=== PATIENT | female | born 1965 | race Caucasian/White ===

== ENCOUNTER 2017-09-23 05:53 | Day surgery (SDC) | payer BC ==
[~2017-09-23 05:53] MED LIST: Buffered Lidocaine 0.9% SYRIN* 5 ML/SYR SYRINGE INTRADERM ONE
[2017-09-23] MEDS ORDERED: Sodium Citrate/Citric Acid* 15 ML UDC PO ONE (06:00)
[2017-09-23] MEDS ORDERED: Sodium Citrate/Citric Acid* 15 ML UDC ONE (06:03)
[2017-09-23] MEDS ORDERED: ceFAZolin 1 GM in Dextrose (*) 0 GM/0 ML BAG IVPB ONE (06:03)
[2017-09-23] MEDS ORDERED: ceFAZolin 2 GM PREMIX (*) 2 GM/50 ML BAG IVPB ONE (06:34)
[2017-09-23] MEDS ORDERED: Lidocaine 1% INJ* 10 MG/ML 30 ML SDV ONE (07:16)
[2017-09-23] MEDS ORDERED: Midazolam* 1 MG/ML 2 ML VIAL (2 MG) ONE ×2 (07:23→07:39)
[2017-09-23] MEDS ORDERED: fentaNYL* 50 MCG/ML 2 ML VIAL (100 MCG VIAL) ONE (07:23)
[2017-09-23] MEDS ORDERED: Lidocaine 2% PF * 5 ML VIAL ONE (08:00)
[2017-09-23] MEDS ORDERED: Propofol* 10 MG/ML 20 ML BTL IV PUSH ONE (08:00)
[2017-09-23] MEDS ORDERED: Naloxone* 0.4 MG/ML 1 ML VIAL IV PRN (08:09)
[2017-09-23] MEDS ORDERED: oxyCODONE/Acetamin 5/325 MG* TAB ONE (09:02)
--- NOTE | 2017-09-23 09:08 | RAD ---
INDICATION: Central venous catheter placement. COMPARISON: Correlation is made with prior chest x-ray study from June 19, 2011. TECHNIQUE: A portable view of the chest was obtained. FINDINGS: There is a power port central venous catheter present entering on the left side. The catheter tip projects over the right atrium. The heart is within normal limits in size. The lungs are underinflated. There is minimal atelectasis at both lung bases. The lungs are otherwise clear. No pleural effusion or pneumothorax is seen. IMPRESSION: STATUS POST CENTRAL VENOUS CATHETER PLACEMENT, NO EVIDENCE FOR ACUTE FINDING.
[2017-09-23 09:09] VITALS: BP 132/84
--- NOTE | 2017-09-23 09:11 | RAD ---
CPT II Codes: G9500 INDICATION: Breast cancer TECHNIQUE: Intraoperative fluoroscopy was provided during power port placement. FINDINGS: 2 spot films depict left subclavian PowerPort placement with the tip terminating at the right atrium.. Fluoroscopy time: 10.6 seconds IMPRESSION: As above.
--- NOTE | 2017-09-24 14:14 | OP ---
CC: Dr. Sumit Mello; Dr. Beltran; Dr. Joy Brush OPERATIVE NOTE: DATE OF OPERATION: 09/23/17 DATE OF : 65 SURGEON: Sumit Mello MD HOSPICE/HOME HEALTH AIDE: None. ANESTHESIOLOGIST: Dr. Puente. ANESTHESIA: LMAC. PRE-OP DIAGNOSIS: Carcinoma of the breast. POST-OP DIAGNOSIS: Carcinoma of the breast. OPERATIVE PROCEDURE: Placement of left subclavian PowerPort. DESCRIPTION OF PROCEDURE: The patient was supine on the operating room table. After adequate intrave nous sedation, compression stockings, Sofya Hugger warmer, and intravenous antibiotics, the left chest and neck region were prepped with antiseptic and draped in a sterile fashion. Local infiltrative an esthesia was administered. Subclavian incision was created and inferior pocket was created and with a little bit of difficulty, subclavian venipuncture was carried out and guidewire passed under fluoro scopic guidance into the superior vena cava. The catheter was passed with a Peel-Away introducer and measured and cut at 27 cm, attached through the port, which was sutured into the pocket with 2-0 Pro qasim. The pocket was closed with 3-0 and 5-0 Vicryl and followed by Steri-Strips. The port was acce ssed. There was good blood return. It was flushed with saline solution and then heparinized solutio n and covered with a Tegaderm dressing. She was awakened and brought to the recovery in good conditi on. No complications. No drains. No pathologic specimens. Sponge and instrument counts correct. Estimated blood loss 10 mL. [id number]/[facility] #: [id number]
== END 2017-09-23 09:20 | disposition home or self-care (01) ==
LOC: OR 05:53
PROVIDERS: ATTEND Surgery
DX: C50.911 Malignant neoplasm of unspecified site of right female breast (principal); E78.5 Hyperlipidemia, unspecified; Z87.891 Personal history of nicotine dependence; R00.2 Palpitations
CPT/HCPCS: 71045; 76000; A9270-GY; C1788; J0690; J1642; J2250; J2704; J3010

== ENCOUNTER 2017-09-25 07:42 | Emergency (ER) | payer BC ==
[2017-09-25 07:48] VITALS: BP 130/70
[2017-09-25] MEDS ORDERED: Ondansetron INJ* 2 MG/ML VIAL IV ONE (08:01)
[2017-09-25] MEDS ORDERED: Famotidine TAB* 20 MG PO ONE (08:01)
[2017-09-25] MEDS ORDERED: NS 0.9% 1000 ML* 1,000 ML IV ONE (08:01)
[2017-09-25] MEDS ORDERED: Lidocaine 2% VISCOUS* 15 ML UDC PO ONE (08:01)
[2017-09-25] MEDS ORDERED: Al Hydrox/Mg Hydrox/Simet LIQ* 30 ML UDC PO ONE (08:01)
[2017-09-25 08:23] LABS: Hematocrit 41 % (35-47); Hemoglobin 13.7 g/dl (12.0-16.0); Mean Corpuscular HGB Conc 33 g/dl (31-36); Mean Corpuscular Hemoglobin 29 pg (27-31); Mean Corpuscular Volume 87 fL (80-97); Mean Platelet Volume 9.4 um3 (7.4-10.4); Platelet Count 222 10^3/ul (150-450); Red Cell Distribution Width 13 % (10.5-15); White Blood Count 34.3 10^3/ul (3.5-10.8)
[2017-09-25 08:39] LABS: ABS Basophils 0.1 10^3/ul (0-0.2); ABS Eosinophils 0 10^3/ul (0-0.6); ABS Lymphocytes 0.9 10^3/ul (1.0-4.8); ABS Monocytes 0.7 10^3/ul (0-0.8); ABS Neutrophils 32.6 10^3/ul (1.5-7.7); ABS Nucleated RBC 0 10^3/ul; Eosinophil % 0.1 % (0-6); Lymphocyte % 2.6 % (25-47); Nucleated Red Blood Cells % 0
[2017-09-25 08:42] LABS: EGFR Non-African American 89.3 (>60)
[2017-09-25] MEDS ORDERED: Pantoprazole IV* 40 MG IV ONE (08:53)
[2017-09-25] MEDS ORDERED: Morphine INJ** 4 MG/ML 1 ML CARPUJECT IV ONE (08:54)
[2017-09-25] MEDS ORDERED: Morphine INJ* 2 MG/ML 1 ML SYRINGE (TWO MG - NEW SYRINGE VERSION) ONE (08:57)
[2017-09-25] MEDS ORDERED: LORazepam INJ* 2 MG/ML 1 ML VIAL IV PUSH ONE (08:58)
[2017-09-25] MEDS ORDERED: Morphine INJ* 2 MG/ML 1 ML SYRINGE (TWO MG - NEW SYRINGE VERSION) IV ONE (09:01)
--- NOTE | 2017-09-25 09:07 | ED ---
Abdominal Pain/Female - HPI Summary HPI Summary: This is xenianila Reyna Livingston documenting for attending Stevenson Vega MD. This patient is a 52 year old F presenting to [facility] with a chief complaint of sharp upper abdominal pain since yesterday, worsening at midnight. The patient rates the pain 8/10 in severity. Patient reports sore throat, pain in upper L arm, swelling around neck and shoulders, diarrhea, and nausea. Patient denies dyspnea. She cannot tell if she feels heartburn or reflux due to existing upper abdominal pain. Patient got a Port-A-Cath done 2 days and started her first round of chemotherapy. Patient denies pain from Port-A-Cath. Her oncologist is Joy Brush MD. She had surgery a month ago to remove a lump on her R breast, and the surgeon was Sumit Mello MD. She took 2 anti-nausea medications that did not alleviate her symptoms. She is also on chemotherapy agents, steroids, and Benadryl. She takes Tylenol or ibuprofen as needed. - History of Current Complaint Chief Complaint: EDAbdPain Stated Complaint: ABD PAIN,SWELLING Time Seen by Provider: 09/25/17 07:53 Hx Obtained From: Patient Hx Last Menstrual Period: 2012 Onset/Duration: Sudden Onset, Lasting Days - since yesterday, Still Present Timing: Constant Severity Initially: Severe Severity Currently: Severe Pain Intensity: 8 Pain Scale Used: 0-10 Numeric Location: Other - upper abdominal Character: Sharp Associated Signs and Symptoms: Positive: Nausea, Diarrhea, Other: - swelling around neck and shoudlers, sore throat, pain in upper L arm, Allergies/Adverse Reactions: Allergies Allergy/AdvReac Type Severity Reaction Status Date / Time Statins Allergy Muscle Ache Uncoded 09/23/17 06:15 PMH/Surg Hx/FS Hx/Imm Hx Endocrine/Hematology History: Reports: Hx Anemia - Excessive menstruation Denies: Hx Bone Marrow Disease, Hx Sickle Cell Disease Cardiovascular History: Reports: Hx Hypercholesterolemia Denies: Other Cardiovascular Problems/Disorders Respiratory History: Denies: Other Respiratory Problems/Disorders GI History: Reports: Hx Gastroesophageal Reflux Disease - occasional-usually just heartburn, Other GI Disorders - Fatty Liver History: Reports: Hx Kidney Stones - believes there were kidney stones found on the CT scan Denies: Other Problems/Disorders Musculoskeletal History: Reports: Hx Arthritis - bilateral hips, back, knees, Hx Tendonitis - Left elbow tendinitis Denies: Other Musculoskeletal History - Torn muscle in back 1995 Sensory History: Reports: Hx Contacts or Glasses - Reading glasses Denies: Hx Hearing Aid Opthamlomology History: Reports: Hx Contacts or Glasses - Reading glasses Neurological History: Denies: Other Neuro Impairments/Disorders Psychiatric History: Reports: Hx Depression - history of, situational, job loss 2012 - Cancer History Hx Chemotherapy: - Starting on 09/23/17 - Surgical History Surgery Procedure, Year, and Place: Hysterectomy 2013, Tonsils, Appendectomy , B /L eye muscle x 2 surgeries; Deviated septum, , Retained placenta, Tummy tuck. Lumpectomy with [place] node biopsy 08/09. Colonoscopy 2016 & 2017 Hx Anesthesia Reactions: Yes - States she had anxiety and sleep apnea after lumpectomy in PACU Infectious Disease History: No Infectious Disease History: Denies: Traveled Outside the [place] in Last 30 Days - Family History Known Family History: Positive: Cardiac Disease - Mother Negative: Hypertension, Diabetes - Social History Lives: With Family Alcohol Use: Occasionally Alcohol Amount: less than once a month Substance Use Type: Reports: None Smoking Status (MU): Former Smoker Amount Used/How Often: 1/2 - 1 PPD for 10 years Review of Systems Positive: Sore Throat, Other - swelling around neck and shoulders Negative: Other - denies dyspnea Positive: Abdominal Pain - sharp upper abdominal pain, Diarrhea, Nausea Positive: Other - pain in upper L arm All Other Systems Reviewed And Are Negative: Yes Physical Exam - Summary Physical Exam Summary: Appearance: Well appearing, no pain distress Skin: warm, dry, reflects adequate perfusion. Healing surgical site in left chest port and a little bit of swelling. Similar swelling on right side Head/face: normal Eyes: EOMI, TRACY ENT: Normal. Mucous membranes moist. Neck: supple, non-tender. No stridor in neck Respiratory: Breath sounds present. Mild wheezes in right base. Cardiovascular: RRR, pulses symmetrical Abdomen: non-tender, soft Bowel Sounds: present Musculoskeletal: normal, strength/ROM intact Neuro: normal, sensory motor intact, A&Ox3 Triage Information Reviewed: Yes Vital Signs On Initial Exam: Initial Vitals Temp Pulse Resp BP Pulse Ox 97.4 F 62 14 130/70 97 09/25/17 07:45 09/25/17 07:45 09/25/17 07:45 09/25/17 07:45 09/25/17 07:45 Vital Signs Reviewed: Yes Diagnostics - Vital Signs Vital Signs Temp Pulse Resp BP Pulse Ox 09/25/17 09:01 16 09/25/17 08:18 66 94 09/25/17 07:45 97.4 F 62 14 130/70 97 - Laboratory Lab Results: Lab Results 09/25/17 09/25/17 09/25/17 Range/Units 08:08 08:08 08:08 WBC 34.3 H (3.5-10.8) 10^3/ul RBC 4.70 (4.00-5.40) 10^6/ul Hgb 13.7 (12.0-16.0) g/dl Hct 41 (35-47) % MCV 87 (80-97) fL MCH 29 (27-31) pg MCHC 33 (31-36) g/dl RDW 13 (10.5-15) % Plt Count 222 (150-450) 10^3/ul MPV 9.4 (7.4-10.4) um3 Neut % (Auto) 94.9 H (38-83) % Lymph % (Auto) 2.6 L (25-47) % Wilcox % (Auto) 2.1 (0-7) % Eos % (Auto) 0.1 (0-6) % Baso % (Auto) 0.3 (0-2) % Absolute Neuts (auto) 32.6 H (1.5-7.7) 10^3/ul Absolute Lymphs (auto) 0.9 L (1.0-4.8) 10^3/ul Absolute Monos (auto) 0.7 (0-0.8) 10^3/ul Absolute Eos (auto) 0 (0-0.6) 10^3/ul Absolute Basos (auto) 0.1 (0-0.2) 10^3/ul Absolute Nucleated RBC 0 10^3/ul Nucleated RBC % 0 Sodium 137 (135-145) mmol/L Potassium 3.4 L (3.5-5.0) mmol/L Chloride 105 (101-111) mmol/L Carbon Dioxide 25 (22-32) mmol/L Anion Gap 7 (2-11) mmol/L BUN 22 (6-24) mg/dL Creatinine 0.69 (0.51-0.95) mg/dL Est GFR ( Amer) 108.1 (>60) Est GFR (Non-Af Amer) 89.3 (>60) BUN/Creatinine Ratio 31.9 H (8-20) Glucose 137 H (70-100) mg/dL Lactic Acid 0.9 (0.5-2.0) mmol/L Calcium 8.6 (8.6-10.3) mg/dL Total Bilirubin 0.30 (0.2-1.0) mg/dL AST 19 (13-39) U/L ALT 22 (7-52) U/L Alkaline Phosphatase 64 (34-104) U/L C-Reactive Protein 6.78 (<8.01) mg/L Total Protein 6.6 (6.4-8.9) g/dL Albumin 3.6 (3.2-5.2) g/dL Globulin 3.0 (2-4) g/dL Albumin/Globulin Ratio 1.2 (1-3) Lipase 15 (11.0-82.0) U/L Result Diagrams: 09/25/17 08:08 09/25/17 08:08 Lab Statement: Any lab studies that have been ordered have been reviewed, and results considered in the medical decision making process. - Radiology Chest X-Ray Radiology Interpretation Completed By: Radiologist - NO ACTIVE CARDIOPULMONARY DISEASE IS NOTED. ED Physician has reviewed this report. - Ultrasound No standard instances Ultrasound Interpretation Completed By: Radiologist - Venous Doppler Study shows : No evidence of deep venous thrombosis of the left upper extremity is present. ED Physician has reviewed this report. - EKG 1 Cardiac Rate: Bradycardia - 55 BPM EKG Rhythm: Sinus Rhythm - EKG taken 08:05. Flipped T wave in V2 through V4. She has had a flipped T wave before on 12/27/2015. Re-Evaluation - Re-Evaluation 1 Re-Evaluation Time: 08:53 Change: Improved Comment: Patient is slightly improved, but she still has epigastric discomfort 2 Re-Evaluation Time: 10:36 Change: Improved Abdominal Pain Fem Course/Dx - Course Course Of Treatment: Patient with epigastric discomfort beginning after initiation of chemotherapy and oral steroids. She has been taking Decadron twice a day. She was treated with PPI, H2 saida Carafate and viscous lidocaine with some benefit. She was also treated for pain which significantly improved her symptoms. I discussed the case with oncology field installation technician who is aware and agrees this is likely steroid-induced gastritis. White count likely from same. Abdomen was reexamined and it was soft and nontender. Ultrasound of the tender left upper extremity was found to be negative. This is the site of her newly placed port. There is some swelling in the area of the clavicles bilaterally. No DVT was found. She'll follow closely with the oncologist. - Diagnoses Differential Diagnosis: Positive: Other - Gastritis, pancreatitis, peptic ulcer disease, chemotherapy-induced nausea and vomiting Provider Diagnoses: Acute gastritis, Chemotherapy adverse reaction, History of right breast cancer - Provider Notifications Discussed Care Of Patient With: Charly Hahn - Oncology Time Discussed With Above Provider: 08:57 Instructed by Provider To: Other - Dr. Hahn agreed with everything the ED Physician has done so far. Dr. Hahn advised to try some Ativan and ultrasound her arm Discharge - Sign-Out/Discharge Documenting (check all that apply): Patient Departure - Discharge Plan Condition: Improved Disposition: HOME Prescriptions: Famotidine TAB* [Pepcid 20 MG TAB*] 20 mg PO BID #30 tab Pantoprazole Sodium [Protonix] 40 mg PO DAILY #30 granpkt. Sucralfate TAB* [Carafate*] 1 gm PO ACHS #40 tab Patient Education Materials: Gastritis (ED) Referrals: Jess Beltran MD [Primary Care Provider] - Additional Instructions: Clar[place] diet, drink plenty of fluids. Maalox may help. Return with fever, increased discomfort, new symptoms, worse or other concerns. - Billing Disposition and Condition Condition: IMPROVED Disposition: Home
--- OUTSIDE RECORDS SUMMARY | 2017-09-25 09:29 | XMS REPORT ---
:1965 External Reference #:[id number] Author Organization [facility] Address [address] [place] [address] [place] [address] Phone [phone] Care Team Providers Name Role Phone Jess Beltran MD Primary Care Physician Unavailable Payers Type Date Identification Numbers Payment Provider Subscriber Commercial Expires: Policy Number: BS Fatou Grant 2017 [id number] PayID: [id number] [address] [address] [place] [id number] Medigap Part B Effective: 2017 Policy Number: BS Fatou Grant [id number] PayID: [id number] [address] [address] [place] [address] Problems Description No Information Family History Date Family Member(s) Problem(s) Comments General Breast Cancer aunt General Ovarian Cancer General Colon Cancer Father Colon Cancer Onset: (age 54 Years) Mother Breast Cancer Onset: (age 40 Years) First Sister Ovarian Cancer Social History Type Date Description Comments Marital Status 2 Times Lives With Occupation Unemployed ETOH Use Occasionally consumes alcohol Smoking Patient is a former smoker Recreational Drug Use Denies Drug Use Daily Caffeine Does Not Consume Caffeine Exercise Type/Frequency Does not exercise Allergies, Adverse Reactions, Alerts Date Description Reaction Status Severity Comments 09/17/2017 Statins active Medications Medication Date Status Form Strength Qnty SIG Indications Ordering Provider Cyclobenzaprine / Active Tablets 10mg 1 tab by Unknown HCL 0000 mouth as needed Ibuprofen 00/ Active Tablets 600mg three times Unknown 0000 a day Imodium A-D 00/00/ Active Capsules 2mg take two Unknown 0000 after the first loose stool and one after each loose stool afterwards Ocuvite Adult / Active Capsules 1 by mouth Unknown Formula 0000 every day Ondansetron 00/00/ Active Tablets 4mg dissolve Unknown 0000 Dispers one tablet orally every 8 hours as needed for nausea. Tums 00/00/ Active Chewtabs 500mg as needed Unknown 0000 Vital Signs Date Vital Result Comment 09/17/2017 Height 63.5 inches 5'3.50" Weight 159.00 lb Heart Rate 90 /min BP Systolic Sitting 112 mmHg BP Diastolic Sitting 60 mmHg Respiratory Rate 12 /min Pain Level 4 BMI (Body Mass Index) 27.7 kg/m2 Results Description No Information Procedures Date CPT Code Description Status 09/14/2017 79118 ECHO Transthoracic, Real-Time 2D With Doppler And Color Completed Flow 09/14/2017 85347 ECHO Transthoracic, Real-Time 2D With Doppler And Color Completed Flow 11/06/2011 86597 Holter Monitor Review (24 hr)dr review & interp only Completed 07/17/2011 76223 Holter Monitor Review (24 hr) review & interp only Completed Plan of Care 09/17/2017 - Sumit Mello M.D.C50.911 Malignant neoplasm of unsp site of right female breastFollow up:OR
--- NOTE | 2017-09-25 09:52 | RAD ---
Indication: Left upper extremity pain. Duplex Doppler sonography of the left upper extremity venous system was performed. Internal jugular vein demonstrates biphasic flow bilaterally. Subclavian veins demonstrates normal phasic flow. The left axillary vein, brachial vein, basilic vein, cephalic vein appear patent and compressible. IMPRESSION: No evidence of deep venous thrombosis of the left upper extremity is present.
--- NOTE | 2017-09-25 10:17 | RAD ---
Indication: Epigastric pain. Single frontal view of the chest performed at 0910 hours was reviewed. No prior study is available for comparison. No mediastinal shift is noted. Heart is of normal size and configuration. Lung tian appear clear. Central port is in place. IMPRESSION: NO ACTIVE CARDIOPULMONARY DISEASE IS NOTED.
== END 2017-09-25 11:03 | disposition home or self-care (01) ==
LOC: ED 07:42
DX: K29.00 Acute gastritis without bleeding (principal); T45.1X5A Adverse effect of antineoplastic and immunosuppressive drugs, initial encounter; Y92.9 Unspecified place or not applicable; C50.911 Malignant neoplasm of unspecified site of right female breast; R00.1 Bradycardia, unspecified; F17.200 Nicotine dependence, unspecified, uncomplicated; Z87.442 Personal history of urinary calculi; Z88.8 Allergy status to other drugs, medicaments and biological substances
CPT/HCPCS: 36415; 71045; 80053; 83605; 83690; 85025; 86140; 87040; 93005; 96361; 96374; 96375; 99283; A9270-GY; J2060; J2270; J2405

== ENCOUNTER 2017-09-27 07:42 | Inpatient (IN) | payer BC ==
[2017-09-27] MEDS: Morphine VIAL* 4 MG/ML VIAL (1 ml vial) IV PRN (17:16)
[2017-09-27] MEDS: Al Hydrox/Mg Hydrox/Simet LIQ* 30 ML UDC PO SCH ×2 (17:18→21:41)
[2017-09-27] MEDS: Lidocaine 2% VISCOUS* 15 ML UDC PO SCH ×2 (17:18→21:41)
[2017-09-27] MEDS: Sucralfate TAB* 1 GM PO SCH ×2 (17:18→20:39)
[2017-09-27] MEDS: Enoxaparin(*) 40 MG/0.4 ML SYR SUBCUT SCH (17:18)
[2017-09-27] MEDS: NS 0.9% 1000 ML* 1,000 ML IV SCH (17:56)
[2017-09-27] MEDS: Cyclobenzaprine TAB* 10 MG PO PRN (17:57)
[2017-09-27] MEDS: Ondansetron INJ* 2 MG/ML VIAL IV PRN (17:57)
[2017-09-27] MEDS: Prochlorperazine TAB* 10 MG PO PRN (18:59)
[2017-09-27] MEDS ORDERED: Famotidine IV * 20 MG in NS 0.9% 100 ML* 100 ML IVPB SCH (21:00)
[2017-09-27] MEDS: Ondansetron ODT TAB* 4 MG PO PRN (21:44)
[2017-09-27] MEDS: LORazepam INJ* 2 MG/ML 1 ML VIAL IV PUSH PRN (21:51)
[2017-09-27] MEDS: Famotidine IV* 10 MG/ML 2 ML (20 mg) IV SLOW PU SCH (21:51)
[2017-09-28] MEDS: Ondansetron INJ* 2 MG/ML VIAL IV PRN ×3 (03:00→13:10)
[2017-09-28] MEDS: Prochlorperazine TAB* 10 MG PO PRN ×2 (03:00→09:12)
[2017-09-28 05:07] LABS: ABS Basophils 0 10^3/ul (0-0.2); ABS Eosinophils 0.1 10^3/ul (0-0.6); ABS Lymphocytes 1.2 10^3/ul (1.0-4.8); ABS Monocytes 0.1 10^3/ul (0-0.8); ABS Neutrophils 1.6 10^3/ul (1.5-7.7); ABS Nucleated RBC 0 10^3/ul; Eosinophil % 4.7 % (0-6); Hematocrit 33 % (35-47); Hemoglobin 11.4 g/dl (12.0-16.0); Lymphocyte % 40.4 % (25-47); Mean Corpuscular HGB Conc 34 g/dl (31-36); Mean Corpuscular Hemoglobin 30 pg (27-31); Mean Corpuscular Volume 87 fL (80-97); Mean Platelet Volume 10.1 um3 (7.4-10.4); Nucleated Red Blood Cells % 0; Platelet Count 102 10^3/ul (150-450); Red Blood Count 3.81 10^6/ul (4.00-5.40); Red Cell Distribution Width 13 % (10.5-15); White Blood Count 3.1 10^3/ul (3.5-10.8)
[2017-09-28 05:21] LABS: EGFR Non-African American 81.1 (>60)
[2017-09-28] MEDS: Sucralfate TAB* 1 GM PO SCH ×4 (07:40→22:26)
[2017-09-28] MEDS: Morphine VIAL* 4 MG/ML VIAL (1 ml vial) IV PRN ×2 (09:03→12:09)
[2017-09-28] MEDS: Al Hydrox/Mg Hydrox/Simet LIQ* 30 ML UDC PO SCH ×4 (09:04→21:07)
[2017-09-28] MEDS: Lidocaine 2% VISCOUS* 15 ML UDC PO SCH ×4 (09:04→21:07)
[2017-09-28] MEDS: Pantoprazole IV* 40 MG IV SCH (09:04)
[2017-09-28] MEDS: Famotidine IV* 10 MG/ML 2 ML (20 mg) IV SLOW PU SCH ×2 (09:10→21:09)
--- NOTE | 2017-09-28 10:51 | PN ---
Progress Note - Progress Note Date of Service: 09/28/17 SOAP: Subjective: []Not much better today, maybe a little. Has stomach pain 5/10 today, 8/10 yesterday. Morphine helps. Ate eggs this am, some toast. No fevers. Had some dizziness last night standing up and then washing up this am. Al Hydrox/Mg Hydrox/Simethicone (Maalox Plus*) 30 ml PO QID [facility] Last Admin: 09/28/17 09:04 Dose: 30 ml Cyclobenzaprine HCl (Flexeril Tab*) 10 mg PO BID PRN PRN Reason: Muscle spasm Last Admin: 09/27/17 17:57 Dose: 10 mg Enoxaparin Sodium (Lovenox(*)) 40 mg SUBCUT Q24H [facility] Last Admin: 09/27/17 17:18 Dose: 40 mg Famotidine (Pepcid Iv*) 20 mg IV SLOW PU BID [facility] Last Admin: 09/28/17 09:10 Dose: 20 mg Heparin Sodium (Porcine) (Heparin Flush Port (Ivad)) 5 ml FLUSH DAILY [facility]; Protocol Last Admin: 09/28/17 09:04 Dose: 5 ml Sodium Chloride (Ns 0.9% 1000 Ml*) 1,000 mls @ 75 mls/hr IV PER RATE [facility] Last Admin: 09/27/17 17:56 Dose: 75 mls/hr Lidocaine (Xylocaine 2% Viscous*) 15 ml PO QID [facility] Last Admin: 09/28/17 09:04 Dose: 15 ml Loperamide HCl (Imodium Cap*) 2 mg PO Q4H PRN PRN Reason: DIARRHEA Lorazepam (Ativan Inj*) 1 mg IV PUSH Q6H PRN PRN Reason: Anxiety/upset stomach/insomnia Last Admin: 09/27/17 21:51 Dose: 1 mg Morphine Sulfate (Morphine Vial*) 4 mg IV Q4H PRN PRN Reason: PAIN Last Admin: 09/28/17 09:03 Dose: 4 mg Ondansetron HCl (Zofran Inj*) 4 mg IV Q4H PRN PRN Reason: NAUSEA Last Admin: 09/28/17 09:50 Dose: 4 mg Ondansetron HCl (Zofran Odt Tab*) 4 mg PO Q6H PRN PRN Reason: NAUSEA Last Admin: 09/27/17 21:44 Dose: 4 mg Pantoprazole Sodium (Protonix Iv*) 40 mg IV DAILY [facility] Last Admin: 09/28/17 09:04 Dose: 40 mg Prochlorperazine (Compazine Tab*) 10 mg PO Q6H PRN PRN Reason: NAUSEA/VOMITING Last Admin: 09/28/17 09:12 Dose: 10 mg Sucralfate (Carafate*) 1 gm PO ACHS [facility] Last Admin: 09/28/17 07:40 Dose: 1 gm Objective: [] Vital Signs Temp Pulse Resp BP Pulse Ox 97.6 F 64 18 102/65 97 09/28/17 03:14 09/28/17 03:14 09/28/17 10:20 09/28/17 03:14 09/28/17 03:14 HEENT: Mucosa moist, no thrush CTA Tachy, regular on exam, S1S2 + epigastric tenderness, no rebound or guarding. +BS obese, no HSM on exam Ext - +1 edema Neuro - AAOx3, strength 5/5 throughout Telemetry: PVCs and ventricular bigeminy. No change in rate or rhythm with episodes of feeling dizzy. EKG - ventricular bigeminy, SR, similar to 12/2015 Assessment: []52 year old with epigastric pain for 3 days. Suspect gastritis secondary to chemotherapy and steroids. She is slowly improving. Plan: []1. Abdominal pain. She is on a full compliment of acid suppression and IV narcotics. Pain is better so will leave the same today. If improved tomorrow, try to transition to oral medication. 2. Feling dizzy. Unrelated to heart rhythm. ddx: dehydration, side effect of medication. - Will give 1L NS x 1 now and then continue at 100 cc/hr - Hold compazine, continue Zofran.
[2017-09-28] MEDS: Enoxaparin(*) 40 MG/0.4 ML SYR SUBCUT SCH (16:52)
[2017-09-28] MEDS: NS 0.9% 1000 ML* 1,000 ML IV SCH (18:44)
[2017-09-28] MEDS: Loperamide CAP* 2 MG PO PRN (21:06)
[2017-09-28] MEDS: Ondansetron ODT TAB* 4 MG PO PRN (21:06)
[2017-09-28] MEDS: LORazepam INJ* 2 MG/ML 1 ML VIAL IV PUSH PRN (21:09)
[2017-09-29] MEDS: Loperamide CAP* 2 MG PO PRN (01:42)
[2017-09-29] MEDS: Cyclobenzaprine TAB* 10 MG PO PRN (01:43)
[2017-09-29 05:42] LABS: Hematocrit 35 % (35-47); Hemoglobin 11.7 g/dl (12.0-16.0); Mean Corpuscular HGB Conc 34 g/dl (31-36); Mean Corpuscular Hemoglobin 30 pg (27-31); Mean Corpuscular Volume 88 fL (80-97); Mean Platelet Volume 9.8 um3 (7.4-10.4); Platelet Count 132 10^3/ul (150-450); Red Blood Count 3.94 10^6/ul (4.00-5.40); Red Cell Distribution Width 13 % (10.5-15); White Blood Count 3.3 10^3/ul (3.5-10.8)
[2017-09-29 05:57] LABS: EGFR Non-African American 71.2 (>60)
[2017-09-29 06:32] LABS: ABS Basophils 0 10^3/ul (0-0.2); ABS Neutrophils 0.4 10^3/ul (1.5-7.7); Monocytes % 13 % (0-7)
[2017-09-29 06:50] LABS: ABS Basophils 0 10^3/ul (0-0.2); ABS Eosinophils 0.1 10^3/ul (0-0.6); ABS Lymphocytes 1.6 10^3/ul (1.0-4.8); ABS Monocytes 0.7 10^3/ul (0-0.8); ABS Neutrophils 0.9 10^3/ul (1.5-7.7); ABS Nucleated RBC 0 10^3/ul
[2017-09-29] MEDS: Sucralfate TAB* 1 GM PO SCH ×4 (06:59→20:26)
[2017-09-29] MEDS: Ondansetron INJ* 2 MG/ML VIAL IV PRN (06:59)
[2017-09-29] MEDS: Pantoprazole IV* 40 MG IV SCH (08:56)
[2017-09-29] MEDS: Famotidine IV* 10 MG/ML 2 ML (20 mg) IV SLOW PU SCH (08:56)
[2017-09-29] MEDS: Lidocaine 2% VISCOUS* 15 ML UDC PO SCH ×4 (08:57→20:28)
[2017-09-29] MEDS: Al Hydrox/Mg Hydrox/Simet LIQ* 30 ML UDC PO SCH ×4 (08:57→20:28)
[2017-09-29] MEDS: NS 0.9% 1000 ML* 1,000 ML IV SCH ×2 (08:58→23:50)
[2017-09-29] MEDS ORDERED: Acetaminophen TAB* 325 MG PO PRN (09:47)
--- NOTE | 2017-09-29 09:57 | PN ---
Progress Note - Progress Note Date of Service: 09/29/17 SOAP: Subjective: still feels "terrible" today. started with diarrhea last night after having 5 days of constipation. no abdominal pain per se, just nausea. does not feel that she could manage that at home. admits now to a 72 hour fast prior to chemo. Objective: Vital Signs Temp Pulse Resp BP Pulse Ox 99.1 F 85 18 103/65 97 09/29/17 07:50 09/29/17 07:50 09/29/17 08:00 09/29/17 07:50 09/29/17 07:50 sitting up eating breakfast in nad perr eomi op moist CTA bl ectopy soft min ttp over midepigastrium no le edema port clean A+O x 3, grossly nonfocal Laboratory Results - last 24 hr 09/29/17 09/29/17 05:10 05:10 WBC 3.3 L RBC 3.94 L Hgb 11.7 L Hct 35 MCV 88 MCH 30 MCHC 34 RDW 13 Plt Count 132 L MPV 9.8 Neut % (Auto) Not Reportable Lymph % (Auto) Not Reportable Franklin % (Auto) Not Reportable Eos % (Auto) Not Reportable Baso % (Auto) Not Reportable Absolute Neuts (auto) 0.9 L Absolute Lymphs (auto) 1.6 Absolute Monos (auto) 0.7 Absolute Eos (auto) 0.1 Absolute Basos (auto) 0 Absolute Nucleated RBC 0 Immature Gran % 19 H Neutrophils % 13 L Band Neutrophils % 13 H Lymphocytes % 53 H Monocytes % 13 H Eosinophils % 2 Basophils % 0 Metamyelocytes % 3 H Myelocytes % 2 H Promyelocytes % 1 Nucleated RBC % Not Reportable Abs Neuts (Manual) 0.4 L Abs Lymphs (Manual) 1.8 Abs Monocytes (Manual) 0.4 Absolute Eos (Manual) 0.1 Abs Basophils (Manual) 0 Normal RBC Morphology Normal Sodium 137 Potassium 4.1 Chloride 102 Carbon Dioxide 29 Anion Gap 6 BUN 13 Creatinine 0.84 Est GFR ( Amer) 86.2 Est GFR (Non-Af Amer) 71.2 BUN/Creatinine Ratio 15.5 Glucose 121 H Calcium 8.9 Magnesium 2.0 Total Bilirubin 0.30 AST 27 ALT 42 Alkaline Phosphatase 59 Total Protein 5.9 L Albumin 3.3 Globulin 2.6 Albumin/Globulin Ratio 1.3 Acetaminophen (Tylenol Tab*) 650 mg PO Q4H PRN PRN Reason: HEADACHE Al Hydrox/Mg Hydrox/Simethicone (Maalox Plus*) 30 ml PO QID [facility] Last Admin: 09/29/17 08:57 Dose: 30 ml Cyclobenzaprine HCl (Flexeril Tab*) 10 mg PO BID PRN PRN Reason: Muscle spasm Last Admin: 09/29/17 01:43 Dose: 10 mg Enoxaparin Sodium (Lovenox(*)) 40 mg SUBCUT Q24H [facility] Last Admin: 09/28/17 16:52 Dose: 40 mg Famotidine (Pepcid Iv*) 20 mg IV SLOW PU BID [facility] Last Admin: 09/29/17 08:56 Dose: 20 mg Heparin Sodium (Porcine) (Heparin Flush Port (Ivad)) 5 ml FLUSH DAILY [facility]; Protocol Last Admin: 09/29/17 09:03 Dose: Not Given Sodium Chloride (Ns 0.9% 1000 Ml*) 1,000 mls @ 75 mls/hr IV PER RATE [facility] Last Admin: 09/29/17 08:58 Dose: 75 mls/hr Lidocaine (Xylocaine 2% Viscous*) 15 ml PO QID [facility] Last Admin: 09/29/17 08:57 Dose: Not Given Loperamide HCl (Imodium Cap*) 2 mg PO Q4H PRN PRN Reason: DIARRHEA Last Admin: 09/29/17 01:42 Dose: 2 mg Lorazepam (Ativan Inj*) 1 mg IV PUSH Q6H PRN PRN Reason: Anxiety/upset stomach/insomnia Last Admin: 09/28/17 21:09 Dose: 1 mg Metoclopramide HCl (Reglan Tab*) 10 mg PO Q8H [facility] Morphine Sulfate (Morphine Vial*) 4 mg IV Q4H PRN PRN Reason: PAIN Last Admin: 09/28/17 12:09 Dose: 4 mg Ondansetron HCl (Zofran Inj*) 4 mg IV Q4H PRN PRN Reason: NAUSEA Last Admin: 09/29/17 06:59 Dose: 4 mg Ondansetron HCl (Zofran Odt Tab*) 4 mg PO Q6H PRN PRN Reason: NAUSEA Last Admin: 09/28/17 21:06 Dose: 4 mg Pantoprazole Sodium (Protonix Iv*) 40 mg IV DAILY [facility] Last Admin: 09/29/17 08:56 Dose: 40 mg Sucralfate (Carafate*) 1 gm PO ACHS [facility] Last Admin: 09/29/17 06:59 Dose: 1 gm Assessment: 52 yo F w T2N0M0 triple positive BCA on adjuvant TCH/P sp cycle 1 admitted with gastritis and nausea in the setting of a 72 hour fast and steroid use. We discussed the need to avoid fasting with steroids (and chemotherapy in general) . She is in agreement with this plan. Plan: Nausea: stop compazine, add reglan (compazine made dizzy) cont zofran encourage PO intake gastritis: cont carafate change PPI to PO today change H2 saida to PO today cont IVFs today pancytopenia: chemotherapy induced and appropriate anticipate dc home tomorrow
[2017-09-29] MEDS: Metoclopramide TAB* 10 MG PO SCH ×2 (09:58→17:07)
[2017-09-29] MEDS: Enoxaparin(*) 40 MG/0.4 ML SYR SUBCUT SCH (16:33)
[2017-09-29] MEDS: Famotidine TAB* 20 MG PO SCH (20:25)
[2017-09-29] MEDS: Morphine VIAL* 4 MG/ML VIAL (1 ml vial) IV PRN (20:34)
[2017-09-30] MEDS: Metoclopramide TAB* 10 MG PO SCH ×2 (03:08→09:00)
[2017-09-30] MEDS ORDERED: Omeprazole CAP* 20 MG PO SCH (06:00)
[2017-09-30] MEDS: Sucralfate TAB* 1 GM PO SCH ×2 (07:08→11:18)
[2017-09-30 08:05] LABS: Hematocrit 37 % (35-47); Hemoglobin 12.3 g/dl (12.0-16.0); Mean Corpuscular HGB Conc 33 g/dl (31-36); Mean Corpuscular Hemoglobin 29 pg (27-31); Mean Corpuscular Volume 88 fL (80-97); Mean Platelet Volume 9.2 um3 (7.4-10.4); Platelet Count 180 10^3/ul (150-450); Red Blood Count 4.17 10^6/ul (4.00-5.40); Red Cell Distribution Width 13 % (10.5-15); White Blood Count 15.2 10^3/ul (3.5-10.8)
[2017-09-30 08:09] LABS: ABS Basophils 0.1 10^3/ul (0-0.2); ABS Eosinophils 0.1 10^3/ul (0-0.6); ABS Lymphocytes 2.7 10^3/ul (1.0-4.8); ABS Monocytes 2.4 10^3/ul (0-0.8)
[2017-09-30 08:16] LABS: EGFR Non-African American 79.9 (>60)
[2017-09-30 08:32] LABS: ABS Basophils 0 10^3/ul (0-0.2); ABS Neutrophils 6.1 10^3/ul (1.5-7.7); Monocytes % 18 % (0-7)
[2017-09-30] MEDS: Famotidine TAB* 20 MG PO SCH (08:43)
[2017-09-30] MEDS: Lidocaine 2% VISCOUS* 15 ML UDC PO SCH ×2 (08:44→13:03)
[2017-09-30] MEDS: Al Hydrox/Mg Hydrox/Simet LIQ* 30 ML UDC PO SCH ×2 (08:45→13:03)
[2017-09-30] MEDS ORDERED: Scopolamine 1.5 mg* PATCH TRANSDERM SCH (11:00)
--- NOTE | 2017-09-30 11:24 | DS ---
- Discharge Summary Admission Date: 09/27/17 Discharge Date: 09/30/17 Discharge Diagnosis: 1. Gastritis: 2/2 steroids and chemotherapy, stable to improved with decreased pain 2. CINV: stable to improved with minimal emesis, add scop. patch, pt. eating well 3. Breast Cancer: triple postive, s/p C1 TCHP 09/23 Discharge Medications: Medication Instructions Recorded Confirmed Type Cyclobenzaprine TAB* [Flexeril 10 10 mg PO BID PRN 03/01/17 09/27/17 History MG TAB*] Calcium Carbonate [Tums] 2 tab PO Q4HR PRN 09/20/17 09/27/17 History Ondansetron [Ondansetron Odt] 4 mg PO Q6HR PRN 09/20/17 09/27/17 History Pantoprazole Sodium [Protonix] 40 mg PO DAILY #30 granpkt. 09/25/17 09/27/17 Rx Sucralfate TAB* [Carafate*] 1 gm PO ACHS #40 tab 09/25/17 09/27/17 Rx Acetaminophen TAB* [Tylenol TAB*] 650 mg PO Q4H PRN tab 09/30/17 Rx Al Hydrox/Mg Hydrox/Simet LIQ* 30 ml PO QID PRN #120 udc 09/30/17 Rx [Maalox Plus*] Famotidine TAB* [Pepcid 20 MG TAB*] 20 mg PO BID #60 tab 09/30/17 Rx Loperamide CAP* [Imodium CAP*] 2 mg PO Q4H PRN #0 MDD 8 tabs/day 09/30/1709/27 Rx Metoclopramide TAB* [Reglan TAB*] 10 mg PO Q8H #90 tab 09/30/17 Rx Scopolamine 1.5 mg* PATCH* 1 patch TRANSDERM Q72H #10 patch 09/30/17 Rx [Transderm-Scop 1.5 mg Patch*] Hospital Course: Please see admission note for full H&P, however briefly, Mrs. Grant was diagnosed 08/19/17 with stage IIA triple positive breast cancer. She started adjuvant TCHP chemotherapy on 09/23/17. On 09/25 she presented to the ER with severe abd. pain and was provided with appropriate management of gastritis. The following day she cont.'d to have severe pain and then developed palpitations. She was seen in the office on 09/27 at which time she received IV fluids, PO GI cocktail, IV famotidine, and IV ativan; however pain and nausea was only minimally helped, therefore she was admitted for observation. To note in office on 12 lead EKG she initially had Ventricular trigeminy, received IV KCl, and then on repeat with cont.'d Ventricular bigeminy, therefore she was monitored on tele. She had a negative troponin. During her admission she has had variable abd. pain and intermittent nausea. She complains of diarrhea, though has taken minimal imodium. Overall she remains very stable and over the last 24 hours has been managed on mostly PO medications therefore she will be discharged home on current regimen. Nausea has been variable with various medications (initially helped by IV ativan and now she states this makes her more nauseated) and plan is to add Scopolamine, cont. Reglan TID, and cont. use of zofran PRN. In terms of her gastritis she has been counseled to cont. small frequent meals, PPI and H2 antagonist, as well carafate. For further treatments she may be a good candidate for use of Olanzipine D1-5. She is very frustrated with her degree of abd. discomfort and tells me she does not want further chemotherapy. I reviewed that she is in the aidan period and should note improvement over the next week, and I have encouraged her to call the office with further symptoms or poor management of symptoms at home. In regards to further chemotherapy I have encouraged her to discuss this with Dr. Brush at her scheduled appointment 10/11 as I feel her current statement is made in relation to admission and distress. At this time I suspect the gastritis is improving (she denies further abd. pain) and that with more proactive approach her nausea can be better controlled. She is agreeable to the plan of care and denied further questions. Throughout her admission her heart rate averaged in the 80s-90s and she had variable PVCs without runs or V.Tach. For now we will not pursue further cardiac work-up, however if new or further cardiac symptoms arise she will be referred as needed. >40 min spent with >50% face to face counseling
[2017-09-30] MEDS ORDERED: Clotrimazole TROCHE* 10 MG TROCHE PO SCH (14:00)
[2017-09-30 15:20] VITALS: BP 117/66
[2017-10-03] MEDS ORDERED: Scopolamine PATCH Remove* 1 NOTE MISC PATCH OFF SCH (11:00)
== END 2017-09-30 16:27 | disposition home or self-care (01) | DRG 241 ==
LOC: MEDTELE 07:42 → OBSVTOIN 09-29 07:42
PROVIDERS: ADMIT Internal Medicine Hematology & Oncology; ATTEND Internal Medicine Hematology & Oncology
DX: K29.70 Gastritis, unspecified, without bleeding (principal); D61.818 Other pancytopenia; T38.0X5A Adverse effect of glucocorticoids and synthetic analogues, initial encounter; T45.1X5A Adverse effect of antineoplastic and immunosuppressive drugs, initial encounter; R11.2 Nausea with vomiting, unspecified; C50.919 Malignant neoplasm of unspecified site of unspecified female breast; I49.3 Ventricular premature depolarization; E78.5 Hyperlipidemia, unspecified; E66.9 Obesity, unspecified; Z90.711 Acquired absence of uterus with remaining cervical stump; Z98.51 Tubal ligation status; Z87.891 Personal history of nicotine dependence; Z72.89 Other problems related to lifestyle; Z17.0 Estrogen receptor positive status [ER+]; Z88.8 Allergy status to other drugs, medicaments and biological substances; Z80.3 Family history of malignant neoplasm of breast; Z80.41 Family history of malignant neoplasm of ovary; Z80.0 Family history of malignant neoplasm of digestive organs; Z68.27 Body mass index [BMI] 27.0-27.9, adult
CPT/HCPCS: A9270-GY; G0378; G0463; G8427; J1642; J1650; J2060; J2270; J2405; Q0164

== ENCOUNTER 2018-01-03 12:41 | Emergency (ER) | payer BC, OTHER ==
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
[2018-01-03 16:32] VITALS: BP 138/81
== END 2018-01-03 16:31 | disposition home or self-care (01) ==
LOC: ED 12:41
DX: M54.2 Cervicalgia (principal); M54.5 Low back pain; M25.512 Pain in left shoulder; M25.551 Pain in right hip; M51.34 Other intervertebral disc degeneration, thoracic region; M51.36 Other intervertebral disc degeneration, lumbar region; Z88.8 Allergy status to other drugs, medicaments and biological substances; Z87.891 Personal history of nicotine dependence
CPT/HCPCS: 72125; 72128; 72131; 99282

== ENCOUNTER 2018-04-09 13:46 | Emergency (ER) | payer BC ==
--- OUTSIDE RECORDS SUMMARY | 2018-04-09 14:03 | XMS REPORT | Continuity of Care Document ---
:1965 External Reference #:[id number] Author Name Timmy Almonte M.D. Address [address] [place] [id number] Care Team Providers Name Role Phone Jess Beltran MD Care Team Information Software Program Manager Unavailable Jess Beltran MD Primary Care Physician Unavailable Payers Date Identification Numbers Payment Provider Subscriber Policy Number: [id number] Excell[employer] Thompson Grant PayID: [id number] [address] [address] [place] [address] Expires: 2016 Policy Number: [id number] [facility] Glenys Grant PayID: [id number] [address] [address] [place] [address] Advance Directives Description No Information Available Problems Date Description Provider Status Onset: 02/03/2017 Mixed hyperlipidemia Zheng Espinosa M.D., [facility] Active Onset: 02/03/2017 Palpitations Zheng Espinosa M.D., [facility] Active Onset: 02/03/2017 Chest pain Zheng Espinosa M.D., [facility] Active Family History Date Family Member(s) Observation Comments Father due to Colon Cancer () Mother due to Emphysema () Mother Breast Cancer First Brother Heart Attack First Sister due to Ovarian Cancer () Social History Type Date Description Comments Sex Unknown Lives With Lives With Son Diet Patient follows no dietary restrictions Occupation Disabled Tobacco Use Start: Unknown End: Unknown Former Cigarette Smoker 1/2 Pack x10 years Daily ETOH Use Rarely consumes alcohol Allergies, Adverse Reactions, Alerts Date Description Reaction Status Severity Comments 02/03/2017 Statins Active Medications Medication Date Status Form Strength Qnty SIG Indications Ordering Provider Vitamin D Active Capsules 2000Unit 1 by mouth Unknown 0 every day Anastrozole Active Tablets 1mg Becerra, 0 NADINE Desai Ursodiol Active Tablets 250mg 2 by mouth Unknown 0 twice a day Immunizations Description No Information Available Vital Signs Date Vital Result Comment 03/30/2018 4:09pm BP Systolic Sitting Right Arm 122 mmHg BP Diastolic Sitting Right Arm 88 mmHg Heart Rate 69 /min Height 64 inches 5'4" Weight 148.00 lb BMI (Body Mass Index) 25.4 kg/m2 BSA (Body Surface Area) 1.72 m2 [place] body weight in kilograms 54 kg O2 % BldC Oximetry 97 % 02/03/2017 2:36pm BP Systolic Sitting Right Arm 130 mmHg BP Diastolic Sitting Right Arm 82 mmHg Heart Rate 74 /min Respiratory Rate 14 /min Height 64 inches 5'4" Weight 166.00 lb BMI (Body Mass Index) 28.5 kg/m2 BSA (Body Surface Area) 1.81 m2 [place] body weight in kilograms 54 kg Results Test Date Facility Test Result H/L Range Note Hemoglobin/Reza 03/18/2018 [facility] Hemoglobin 11.0 gm/dL Low 11.6-15.8 [address] [place] [address] [phone] Hematocrit 33.1 % Low 36.0-46.1 Laboratory test 03/17/2018 [facility] Lipase 94 U/L N 56-289 [address] [place] [address] [phone] Aot Request 03/16/2018 [facility] Aot Request Test(s) added [address] [place] [address] [phone] Tests to be added: LIPASE PLEASE Instructions: THANK YOU CBC 2018 [facility] White Blood Count 5.5 K/uL N 3.1-10.7 3 [address] [place] [address] [phone] Red Blood Count 4.13 M/uL N 3.90-5.40 Hemoglobin 12.4 gm/dL N 11.6-15.8 Hematocrit 38.2 % N 36.0-46.1 Mean Cell Volume 92.5 fl N 80.9-99.0 Mean Corpuscular HGB 30.0 pg N 25.9-32.7 Mean Corpuscular HGB Conc 32.5 g/dL N 30.8-34.3 Platelet Count 258 K/uL N 155-360 Red Cell Distri Width %CV 12.8 % N 11.7-14.4 Mean Platelet Volume 10.6 fL N 8.9-12.4 Liver Function Tests 2018 [facility] Total Protein 6.7 g/dL N 6.4-8.2 [address] [place] [address] [phone] Albumin 2.9 g/dL Low 3.4-5.0 Globulin 3.8 g/dL N 1.9-4.3 Alb/Glob 0.8 ratio Bilirubin,Total 0.2 mg/dL N 0.2-1.0 Bilirubin,Direct < 0.1 mg/dL N 0.0-0.2 Bilirubin,Indirect 0.1 mg/dL N 0.0-0.9 Sgot/Ast 15 U/L N 15-37 SGPT/Alt 26 U/L N 12-78 Alkaline Phosphatase 76 U/L N 45-117 Basic Metabolic Panel 2018 [facility] Glucose 125 mg/dL High 74-106 [address] [place] [address] [phone] BUN 11 mg/dL N 7-18 Creatinine 1.0 mg/dL N 0.6-1.3 Glom Filtration Rate, Estimate >60 mL/min >60 If >60 mL/min >60 4 BUN/Creat 11.0 ratio Sodium 144 mmol/L N 136-145 Potassium 3.6 mmol/L N 3.5-5.1 Chloride 108 mmol/L High 98-107 Carbon Dioxide 29 mmol/L N 21-32 Anion Gap 7 mEq/L Low 8-16 Calcium 8.8 mg/dL N 8.5-10.1 Anion Gap SerPl-sCnc 01/18/2017 N2N/CCD Import Anion Gap SerPl-sCnc 8 8- 16 Automated blood 01/18/2017 N2N/CCD Import Automated blood 0.03 0.0-0.1 basophil count basophil count (count/volume) (count/volume) Automated blood 01/18/2017 N2N/CCD Import Automated blood 0.32 0.0-0.5 eosinophil count eosinophil count Automated blood 01/18/2017 N2N/CCD Import Automated blood 41.8 36.0-46. hematocrit (volume hematocrit (volume 1 fraction) fraction) Automated blood 01/18/2017 N2N/CCD Import Automated blood 2.60 1.0-4.0 lymphocyte count lymphocyte count (number/volume) (number/volume) Automated blood 01/18/2017 N2N/CCD Import Automated blood 284 150-400 platelet count platelet count Automated blood 01/18/2017 N2N/CCD Import Automated blood 10.7 8.9-12.4 platelet mean volume platelet mean volume measurement measurement Automated erythrocyte 01/18/2017 N2N/CCD Import Automated 29.9 25.9-32. mean corpuscular erythrocyte mean 7 hemoglobin corpuscular hemoglobin (mass per erythrocyte) WBC # Bld Auto 01/18/2017 N2N/CCD Import WBC # Bld Auto 7.7 3.1-10.7 Serum sodium 01/18/2017 N2N/CCD Import Serum sodium 140 136-145 measurement measurement Serum or plasma urea 01/18/2017 N2N/CCD Import Serum or plasma urea 18 7 -18 nitrogen measurement nitrogen measurement (mass/vo (mass/volume) Serum or plasma 01/18/2017 N2N/CCD Import Serum or plasma 116 High 74- 106 glucose measurement glucose measurement (mass/volume) (mass/volume) Serum or plasma 01/18/2017 N2N/CCD Import Serum or plasma 0.8 0.6-1.3 creatinine creatinine measurement measurement (mass/volum (mass/volume) Serum or plasma 01/18/2017 N2N/CCD Import Serum or plasma 8.7 8.5-10.1 calcium measurement calcium measurement (mass/volume) (mass/volume) Serum carbon dioxide 01/18/2017 N2N/CCD Import Serum carbon dioxide 22 21-32 measurement measurement Automated erythrocyte 01/18/2017 N2N/CCD Import Automated 33.0 30.8-34. mean corpuscular erythrocyte mean 3 hemoglobin corpuscular hemoglobin concentration measurement (mass/volume) Automated erythrocyte 01/18/2017 N2N/CCD Import Automated 90.5 80.9-99. mean corpuscular erythrocyte mean 0 volume corpuscular volume BUN/Creat SerPl 01/18/2017 N2N/CCD Import BUN/Creat SerPl 22.5 Basophils/leuk NFr 01/18/2017 N2N/CCD Import Basophils/leuk NFr 0.4 0.0- 1.1 Bld Auto Bld Auto Blood erythrocytes 01/18/2017 N2N/CCD Import Blood erythrocytes 4.62 3.90-5.4 automated count automated count 0 (number/volume) (number/volume) Blood hemoglobin 01/18/2017 N2N/CCD Import Blood hemoglobin 13.8 11.6- 15. measurement measurement 8 (mass/volume) (mass/volume) Blood monocytes 01/18/2017 N2N/CCD Import Blood monocytes 0.65 0.3-0.9 automated count automated count (number/volume) (number/volume) Chloride SerPl-sCnc 01/18/2017 N2N/CCD Import Chloride SerPl-sCnc 110 High 98-107 Eosinophil/leuk NFr 01/18/2017 N2N/CCD Import Eosinophil/leuk NFr 4.2 0.0-6.6 Bld Auto Bld Auto RDW RBC Auto-Rto 01/18/2017 N2N/CCD Import RDW RBC Auto-Rto 13.2 11.7- 14. 4 RDW RBC Auto 01/18/2017 N2N/CCD Import RDW RBC Auto 42.9 3-47 Potassium SerPl-sCnc 01/18/2017 N2N/CCD Import Potassium SerPl-sCnc 4.1 3.5-5.1 Neutrophils/leuk NFr 01/18/2017 N2N/CCD Import Neutrophils/leuk NFr 53.0 40.4-72. Bld Auto Bld Auto 8 Neutrophils # Bld 01/18/2017 N2N/CCD Import Neutrophils # Bld 4.07 1.8- 7.0 Auto Auto Monocytes/leuk NFr 01/18/2017 N2N/CCD Import Monocytes/leuk NFr 8.5 4.3- 13.2 Bld Auto Bld Auto Lymphocytes/leuk NFr 01/18/2017 N2N/CCD Import Lymphocytes/leuk NFr 33.9 20.0-42. Bld Auto Bld Auto 0 Serum or plasma 01/17/2017 N2N/CCD Import Serum or plasma 70 26-192 creatine kinase creatine kinase measurement (enzym measurement (enzymatic activity/volume) Alt SerPl-cCnc 01/17/2017 N2N/CCD Import Alt SerPl-cCnc 43 12-78 Serum or plasma total 01/17/2017 N2N/CCD Import Serum or plasma 0.3 0.2- 1.0 bilirubin measurement total bilirubin (mass/ measurement (mass/volume) Serum or plasma 01/17/2017 N2N/CCD Import Serum or plasma 8.2 6.4-8.2 protein measurement protein measurement (mass/volume) (mass/volume) Serum or plasma 01/17/2017 N2N/CCD Import Serum or plasma 22 15-37 aspartate aspartate aminotransferase aminotransferase measure measurement (enzymatic activity/volume) Serum or plasma 01/17/2017 N2N/CCD Import Serum or plasma 78 45-117 alkaline phosphatase alkaline phosphatase measurement ( measurement (enzymatic activity/volume) Serum or plasma 01/17/2017 N2N/CCD Import Serum or plasma 3.7 3.4-5.0 albumin measurement albumin measurement (mass/volume) (mass/volume) Globulin Ser 01/17/2017 N2N/CCD Import Globulin Ser 4.5 High 1.9-4.3 Calc-mCnc Calc-mCnc Albumin/Glob SerPl 01/17/2017 N2N/CCD Import Albumin/Glob SerPl 0.8 1 AC CHOLECYSTITIS 2 Tests: LIPASE PLEASE Instructions: THANK YOU 3 ABD PAIN 4 Note: Persistent reduction for 3 months or more in an eGFR <60 mL/min/1.73 m2 defines CKD. Patients with eGFR values >/=60 mL/min/1.73 m2 may also have CKD if evidence of persistent proteinuria is present. The original MDRD equation for estimated GFR is not valid for patients less than 18 years of age. Additional information may be found at www.k[facility].org. Procedures Date Code Description Status 03/17/2018 81305 Echocardiogram Complete Completed 03/15/2018 51952 EKG Interpretation And Report Only Completed 02/03/2017 78828 EKG-Tracing And Report Completed 01/22/2017 85620 Stress Test Interpre And Report Only Completed 01/22/2017 61970 Stress Test Physician Super Only Completed 01/22/2017 82165 Myocardial Imaging Tomographic Multiple Study AT Rest [place] Completed Stress 01/23/2013 90850 Anesthesia, Vaginal Hysterectomy Completed 01/17/2013 19702 EKG Interpretation And Report Only Completed 03/30/1994 37870 Vaginal Delivery Global Care Completed 02/20/1994 95622 Non-Stress Test (NST) Completed 11/21/1992 13851 Post- Care Only Completed 10/04/1992 15896 Vaginal Delivery W/Post- Care Completed 09/26/1992 13421 Non-Stress Test (NST) Completed 09/17/1992 96871 Non-Stress Test (NST) Completed 09/05/1992 59235 Non-Stress Test (NST) Completed 08/30/1992 45382 Non-Stress Test (NST) Completed Encounters Type Date Location Provider Dx Diagnosis Office Visit 02/03/2017 Cardiology Office Zheng Espinosa R07.9 Chest pain, 2:20p Hugh Perry, [facility] unspecified R00.2 Palpitations Plan of Treatment 03/30/2018 - Timmy Almonte M.D.K80.00 Calculus of gallbladder with acute cholecystitis without obsComments:Doing well following cholecystectomy.On the she has a follow-up with Dr. Figueroa with regard to management of her stent. Certainly think that some of the discomfort that she reports in the right upper quadrant may be related to the stent.Reassurance offered; questions addressed and she's been askedto continue to call or return on an as-needed basis.
--- OUTSIDE RECORDS SUMMARY | 2018-04-09 14:03 | XMS REPORT | Continuity of Care Document ---
:1965 External Reference #:[id number] Author Name Barbie Li Care Team Providers Name Role Phone Jess Beltran MD Care Team Information Programmer Analyst Consultant Unavailable Jess Beltran MD Primary Care Physician Unavailable Payers Type Date Identification Numbers Payment Provider Subscriber Policy Number: [id number] Shanika Grant PayID: [id number] [address] [address] [place] [address] Expires: 2016 Policy Number: [id number] [facility] Glenys Grant PayID: [id number] [address] [address] [place] [address] Advance Directives Description No Information Available Problems Date Description Provider Status Onset: 02/03/2017 Mixed hyperlipidemia Zheng Espinosa M.D., [facility] Active Onset: 02/03/2017 Palpitations Zheng Espinosa M.D., [facility] Active Onset: 02/03/2017 Chest pain Zheng Espinosa M.D., [facility] Active Family History Date Family Member(s) Problem(s) Comments First Brother Heart Attack Social History Type Date Description Comments Sex Unknown Lives With Lives With Son Occupation Currently Working Tobacco Use Start: Unknown End: Unknown Former Cigarette Smoker 1/2 Pack x10 years Daily ETOH Use Rarely consumes alcohol Allergies, Adverse Reactions, Alerts Date Description Reaction Status Severity Comments 02/03/2017 Statins Active Medications Description No Information Immunizations Description No Information Available Vital Signs Date Vital Result Comment 02/03/2017 2:36pm BP Systolic Sitting Right Arm 130 mmHg BP Diastolic Sitting Right Arm 82 mmHg Heart Rate 74 /min Respiratory Rate 14 /min Height 64 inches 5'4" Weight 166.00 lb BMI (Body Mass Index) 28.5 kg/m2 BSA (Body Surface Area) 1.81 m2 [place] body weight in kilograms 54 kg Results Test Date Facility Test Result H/L Range Note Hemoglobin/Reza 03/18/2018 [facility] Hemoglobin 11.0 gm/dL Low 11.6-15.8 [address] [place] [address] [phone] Hematocrit 33.1 % Low 36.0-46.1 Laboratory test 03/17/2018 [facility] Lipase 94 U/L N 56-289 finding [address], [place] [id number] [phone] Aot Request 03/16/2018 [facility] Aot Request Test(s) added [address] [place] [address] [phone] Tests to be added: LIPASE PLEASE Instructions: THANK YOU CBC 2018 [facility] White Blood Count 5.5 K/uL N 3.1-10.7 3 [address] [place] [address] [phone] Red Blood Count 4.13 M/uL N 3.90-5.40 [...] fL N 8.9-12.4 Liver Function Tests 2018 [facility] Total Protein 6.7 g/dL N 6.4-8.2 [address] [place] [address] [phone] Albumin 2.9 g/dL Low 3.4-5.0 Globulin 3.8 g/dL N 1.9-4.3 Alb/Glob 0.8 ratio Bilirubin,Total 0.2 mg/dL N 0.2-1.0 Bilirubin,Direct < 0.1 mg/dL N 0.0-0.2 Bilirubin,Indirect 0.1 mg/dL N 0.0-0.9 Sgot/Ast 15 U/L N 15-37 SGPT/Alt 26 U/L N 12-78 Alkaline Phosphatase 76 U/L N 45-117 Basic Metabolic Panel 2018 [facility] Glucose 125 mg/dL High 74-106 [address] [place] [address] [phone] BUN 11 mg/dL N 7-18 Creatinine 1.0 [...] blood 284 150-400 platelet count platelet count WBC # Bld Auto 01/18/2017 N2N/CCD Import [...] Serum carbon dioxide 22 21-32 measurement measurement RDW RBC Auto-Rto 01/18/2017 N2N/CCD Import RDW RBC Auto-Rto 13.2 11.7- 14. 4 RDW RBC Auto 01/18/2017 N2N/CCD Import RDW RBC Auto 42.9 3-47 Automated blood 01/18/2017 N2N/CCD Import Automated blood 10.7 8.9-12.4 platelet mean volume platelet mean volume measurement measurement Automated erythrocyte 01/18/2017 N2N/CCD Import Automated 29.9 25.9-32. mean corpuscular erythrocyte mean 7 hemoglobin corpuscular hemoglobin (mass per erythrocyte) Automated erythrocyte 01/18/2017 N2N/CCD Import Automated 33.0 [...] 11.6- 15. measurement measurement 8 (mass/volume) (mass/volume) Potassium SerPl-sCnc 01/18/2017 N2N/CCD Import Potassium SerPl-sCnc [...] 33.9 20.0-42. Bld Auto Bld Auto 0 Eosinophil/leuk NFr 01/18/2017 N2N/CCD Import Eosinophil/leuk NFr 4.2 0.0-6.6 Bld Auto Bld Auto Chloride SerPl-sCnc 01/18/2017 N2N/CCD Import Chloride SerPl-sCnc 110 High 98-107 Blood monocytes 01/18/2017 N2N/CCD Import Blood monocytes 0.65 0.3-0.9 automated count automated count (number/volume) (number/volume) Serum or plasma 01/17/2017 N2N/CCD Import Serum or plasma 22 15-37 aspartate aspartate aminotransferase aminotransferase measure measurement (enzymatic activity/volume) Serum or plasma 01/17/2017 N2N/CCD Import Serum or plasma 8.2 6.4-8.2 protein measurement protein measurement (mass/volume) (mass/volume) Serum or plasma total 01/17/2017 N2N/CCD Import [...] SerPl 01/17/2017 N2N/CCD Import Albumin/Glob SerPl 0.8 Alt SerPl-cCnc 01/17/2017 N2N/CCD Import Alt SerPl-cCnc 43 12-78 Serum or plasma 01/17/2017 N2N/CCD Import Serum or plasma 70 26-192 creatine kinase creatine kinase measurement (enzym measurement (enzymatic activity/volume) 1 AC CHOLECYSTITIS 2 Tests: LIPASE PLEASE [...] [email or web address]. Procedures Date Code Description Status 03/17/2018 23671 Echocardiogram Complete Completed 03/15/2018 46474 EKG Interpretation And Report Only Completed 02/03/2017 31696 EKG-Tracing And Report Completed 01/22/2017 71222 Stress Test Interpre And Report Only Completed 01/22/2017 34965 Stress Test Physician Super Only Completed 01/22/2017 96349 Myocardial Imaging Tomographic Multiple Study AT Rest Or Completed Stress 01/23/2013 56966 Anesthesia, Vaginal Hysterectomy Completed 01/17/2013 49011 EKG Interpretation And Report Only Completed 03/30/1994 02333 Vaginal Delivery Global Care Completed 02/20/1994 23532 Non-Stress Test (NST) Completed 11/21/1992 47609 Post- Care Only Completed 10/04/1992 60026 Vaginal Delivery W/Post- Care Completed 09/26/1992 42797 Non-Stress Test (NST) Completed 09/17/1992 26258 Non-Stress Test (NST) Completed 09/05/1992 11873 Non-Stress Test (NST) Completed 08/30/1992 21229 Non-Stress Test (NST) Completed Encounters Type Date Location Provider Dx Diagnosis Office Visit 02/03/2017 Cardiology Office Zheng Espinosa R07.9 Chest pain, 2:20p Hugh Perry, FACC unspecified R00.2 Palpitations Plan of Treatment Future Appointment(s):03/30/2018 3:45 pm - Timmy Almonte M.D. at [facility]/03/2017 - Zheng Espinosa M.D., FACCR07.9 Chest pain, unspecifiedNew Orders:Echocardiogram, Scheduled: 02/23/17Event Monitor, Ordered : 02/03/17Comments:I reassured her based on the lexiscan result.R00.2 PalpitationsNew Orders:Event Monitor, Ordered: 02/03/17Comments:She will have an event monitor as well as an echo and return to discuss the result.Follow up: after the tests are completed.
[2018-04-09 15:05] VITALS: BP 113/84
--- NOTE | 2018-04-09 15:59 | UC ---
Skin Complaint HPI - HPI Summary HPI Summary: Had Lap/oralia 03/18 with ERCP. Is on antibiotics. Had wound split open upper right abdomen. Some ongoing sweats and chills with the cholangitis. - History of Current Complaint Chief Complaint: UCGeneralIllness Time Seen by Provider: 04/09/18 15:46 Stated Complaint: SKIN CONCERN Hx Obtained From: Patient Hx Last Menstrual Period: 2012 Onset/Duration: Sudden Onset, Lasting Days - 1, Still Present Skin Exposure Onset/Duration: Weeks Ago - 3 Onset Severity: Mild Current Severity: Mild Pain Intensity: 0 Location: Discrete - RUQ Aggravating Factor(s): Touch Alleviating Factor(s): Nothing Associated Signs & Symptoms: Positive: Diaphoresis, Chills, Lightheadedness - ongoing., Drainage, Tenderness. Negative: Nausea, Vomiting, Difficulty Breathing, Fever, Red Streaks Related History: Trauma - recent surgery - Allergy/Home Medications Allergies/Adverse Reactions: Allergies Allergy/AdvReac Type Severity Reaction Status Date / Time Statins Allergy Muscle Ache Uncoded 01/03/18 12:47 Home Medications: Home Medications Anastrozole 5 mg PO DAILY 04/09/18 [History Confirmed 04/09/18] Ciprofloxacin HCl 500 mg PO BID 04/09/18 [History Confirmed 04/09/18] PMH/Surg Hx/FS Hx/Imm Hx GI/ History: Gall Bladder Disease Other GI/ History: pancreatitis Cancer History: Breast Cancer Other History Of: Negative For: Anticoagulant Therapy - Surgical History Surgical History: Yes Surgery Procedure, Year, and Place: Hysterectomy 2012, Tonsils, Appendectomy , B /L eye muscle x 2 surgeries; Deviated septum, , Retained placenta, Tummy tuck. Lumpectomy with Sikes node biopsy 08/09. Colonoscopy 2016 & 2017. LAP ORALIA WITH BILIARY STENT - Family History Known Family History: Positive: Cardiac Disease - Mother Negative: Hypertension, Diabetes - Social History Occupation: Disabled Lives: With Family Alcohol Use: Rare Alcohol Amount: less than once a month Substance Use Type: None Smoking Status (MU): Former Smoker Amount Used/How Often: 1/2 - 1 PPD for 10 years When Did the Patient Quit Smoking/Using Tobacco: 2010 - Immunization History Most Recent Influenza Vaccination: unknown Most Recent Tetanus Shot: 2009 Most Recent Pneumonia Vaccination: none Review of Systems All Other Systems Reviewed And Are Negative: Yes Constitutional: Positive: Chills, Fatigue Skin: Positive: Other - open surgical wound with drainage Is Patient Immunocompromised?: No Physical Exam Triage Information Reviewed: Yes Appearance: Well-Nourished, Pain Distress - mild Vital Signs: Initial Vital Signs Temp 98.1 F 04/09/18 14:57 Pulse 88 04/09/18 14:57 Resp 19 04/09/18 14:57 BP 113/84 04/09/18 14:57 Pulse Ox 98 04/09/18 14:57 Neck exam: Normal Respiratory Exam: Normal Cardiovascular: Positive: RRR, No Murmur Abdomen Description: Positive: Soft. Negative: Nontender - Tender epigastric and RUQ around surgical wound sites. Musculoskeletal Exam: Normal Neurological: Positive: Fatigued Psychological Exam: Normal Skin: Positive: Other - open wound RUQ abdominal wall Images Front/Back of Body, Lg (Nye): 1 - Healed incision 2 - Healed incision 3 - 2 open incisions with normal serous drainage. SubQ stitch visible in lateral wound. No spreading redness. Course/Dx - Differential Diagnoses - Skin Complaint Differential Diagnoses: Abscess, Cellulitis - Diagnoses Provider Diagnosis: Surgical wound dehiscence Discharge - Sign-Out/Discharge Documenting (check all that apply): Patient Departure All imaging exams completed and their final reports reviewed: No Studies - Discharge Plan Condition: Stable Disposition: HOME Prescriptions: Mupirocin 2% OINT* [Bactroban 2 % Oint*] 1 applic TOPICAL BID #1 tube Patient Education Materials: Wound Dehiscence (ED), Mupirocin (On the skin) Referrals: Jess Beltran MD [Primary Care Provider] - Yosi Almonte [Medical Doctor] - 3 Days (regarding wound dehiscence) - Billing Disposition and Condition Condition: STABLE Disposition: Home
== END 2018-04-09 16:21 | disposition home or self-care (01) ==
LOC: UCCORT 13:46
DX: T81.31XA Disruption of external operation (surgical) wound, not elsewhere classified, initial encounter (principal); Z87.891 Personal history of nicotine dependence; Z88.8 Allergy status to other drugs, medicaments and biological substances; Y83.8 Other surgical procedures as the cause of abnormal reaction of the patient, or of later complication, without mention of misadventure at the time of the procedure; Y92.9 Unspecified place or not applicable
CPT/HCPCS: 99212; G0463

== ENCOUNTER 2019-01-24 14:24 | Emergency (ER) | payer BC ==
[2019-01-24 14:52] VITALS: BP 120/61
[2019-01-24] MEDS ORDERED: Tetan/Diph/Pertus SYR(Tdap)* 0.5 ML SYR(BOOSTRIX) use SYR contains LATEX IM ONE (15:00)
--- NOTE | 2019-01-24 15:07 | UC ---
Bite Injury/Animal HPI - HPI Summary HPI Summary: 53-year-old female who was bitten by what she believes was a border collie. She states the construction technician stated the dog was up-to-date on all immunizations. Patient's tetanus immunization is not up-to-date. - History of Current Complaint Chief Complaint: UCBiteInjury Stated Complaint: DOG BITE Time Seen by Provider: 01/24/19 14:41 Hx Obtained From: Patient Hx Last Menstrual Period: 2012 ?: No Severity Currently: Mild Severity Initially: Mild Pain Intensity: 0 Onset/Duration: Sudden Onset Type of Bite: Animal - A person's dog Has Animal Been Immunized?: Yes - Per the nursing staff the police told the patient the dog was up-to-date on immunizations. Character: Puncture - Puncture wound to back of the right calf Aggravating Factor(s): Nothing Alleviating Factor(s): Nothing Associated Signs And Symptoms: Positive: Negative Hx of Bite: Unprovoked - Per the nursing staff this was an unprovoked attack however the patient stated to the nursing staff when she was walking back to her car the person inside the trailer knocked on the window and that is when the dog bit her. Animal Available for Observation: Yes Animal Control Notified: Yes - Allergies/Home Medications Allergies/Adverse Reactions: Allergies Allergy/AdvReac Type Severity Reaction Status Date / Time Aeyvkba-Rlp-Itd Reductase Allergy Muscle Ache Verified 01/24/19 14:38 Inhibitor PMH/Surg Hx/FS Hx/Imm Hx Previously Healthy: Yes Other History Of: Negative For: Anticoagulant Therapy - Surgical History Surgical History: Yes Surgery Procedure, Year, and Place: Hysterectomy 2012, Tonsils, Appendectomy , B /L eye muscle x 2 surgeries; Deviated septum,. , Retained placenta, Tummy tuck; Lumpectomy rt breast with Clarks node biopsy 08/09; Colonoscopy 2016 & 2018; LAP MARISOL WITH BILIARY STENT (THEN REMOVAL STENT);. PORT PLACEMENT - Family History Known Family History: Positive: Cardiac Disease - Mother Negative: Hypertension, Diabetes - Social History Alcohol Use: Rare Alcohol Amount: less than once a month Substance Use Type: None Smoking Status (MU): Former Smoker Amount Used/How Often: 1/2 - 1 PPD for 10 years When Did the Patient Quit Smoking/Using Tobacco: 2010 - Immunization History Most Recent Influenza Vaccination: unknown Most Recent Tetanus Shot: 2009 Most Recent Pneumonia Vaccination: none Review of Systems All Other Systems Reviewed And Are Negative: Yes Skin: Positive: Other - Puncture wound to back of right calf. Is Patient Immunocompromised?: No Physical Exam Triage Information Reviewed: Yes Appearance: Well-Appearing, No Pain Distress, Well-Nourished Vital Signs: Initial Vital Signs Temp 98.9 F 01/24/19 14:40 Pulse 93 01/24/19 14:40 Resp 18 01/24/19 14:40 BP 120/61 01/24/19 14:40 Pulse Ox 98 01/24/19 14:40 Vital Signs Reviewed: Yes Musculoskeletal Exam: Normal Neurological Exam: Normal Psychological Exam: Normal Skin: Positive: Other - Puncture wound to back of right. Bite Injury Course/Dx - Course Course Of Treatment: The patient was given a Tdap immunization. The area had already been cleansed. She is to watch for signs of infection. An animal control report was made by the nurse. - Differential Dx/Diagnosis Provider Diagnosis: Dog bite of right lower leg Discharge ED - Sign-Out/Discharge Documenting (check all that apply): Patient Departure All imaging exams completed and their final reports reviewed: No Studies - Discharge Plan Condition: Good Disposition: HOME Patient Education Materials: Animal Bite (ED) Referrals: Jess Beltran MD [Primary Care Provider] - Additional Instructions: You were given a Tdap tetanus immunization today which is good for 8-10 years. Watch for signs of infection such as hot, red, tender, red streaks or pus drainage and follow-up with your primary care provider if that occurs. - Billing Disposition and Condition Condition: GOOD Disposition: Home
== END 2019-01-24 15:13 | disposition home or self-care (01) ==
LOC: UCCORT 14:24
DX: S81.851A Open bite, right lower leg, initial encounter (principal); L08.9 Local infection of the skin and subcutaneous tissue, unspecified; Z23 Encounter for immunization; W54.0XXA Bitten by dog, initial encounter; Y93.9 Activity, unspecified; Y92.9 Unspecified place or not applicable
CPT/HCPCS: 90471; 90715; 99211; G0463

== ENCOUNTER 2020-07-31 13:52 | Observation (INO) ==
[2020-07-31] MEDS ORDERED: NS 0.9% 1000 ml BAG 1,000 ML IV ONE (14:34)
[2020-07-31] MEDS ORDERED: Ondansetron 4 mg VIAL 2 MG/ML 2 ml VIAL IV ONE (14:34)
[2020-07-31 16:29] LABS: Hematocrit 40 % (35-47); Hemoglobin 12.9 g/dL (12.0-16.0); Mean Corpuscular HGB Conc 33 g/dL (31-36); Mean Corpuscular Hemoglobin 30 pg (27-31); Mean Corpuscular Volume 92 fL (80-97); Mean Platelet Volume 8.2 fL (7.4-10.4); Platelet Count 437 10^3/uL (150-450); Red Blood Count 4.31 10^6 /uL (3.70-4.87); Red Cell Distribution Width 16 % (10-15)
[2020-07-31 17:04] LABS: Albumin 4.2 g/dL (3.2-5.2); Albumin/Globulin Ratio 1.4 (1-3); Calcium 9.8 mg/dL (8.6-10.3); EGFR African American 73.9 (>60); EGFR Non-African American 61.1 (>60); Potassium 4.2 mmol/L (3.5-5.0); Total Bilirubin 0.3 mg/dL (0.2-1.0); Total Protein 7.2 g/dL (6.4-8.9)
[2020-07-31] MEDS ORDERED: Iohexol 300 (CONTRAST) 10 ML SDV IV ONE (17:20)
[2020-07-31] MEDS ORDERED: Ondansetron 4 mg VIAL 2 MG/ML 2 ml VIAL IV PRN (18:04)
[2020-07-31 18:20] LABS: ABS Basophils 0.8 10^3/ul (0-0.2); ABS Eosinophils 1.3 10^3/ul (0-0.6); ABS Lymphocytes 4.5 10^3/ul (1.0-4.8); ABS Monocytes 2.1 10^3/ul (0-0.8); ABS Neutrophils 48.3 10^3/ul (1.5-7.7); ABS Nucleated RBC 0.1 10^3/ul; Eosinophil % 2.3 %; Lymphocyte % 7.9 %; Nucleated Red Blood Cells % 0.1
[2020-07-31] MEDS ORDERED: Enoxaparin 40 MG/0.4 ML SYR SUBCUT SCH (21:00)
[2020-07-31] MEDS: NS 0.9% 1000 ml BAG 1,000 ML IV SCH (21:21)
[2020-08-01 04:55] LABS: Hematocrit 36 % (35-47); Hemoglobin 11.5 g/dL (12.0-16.0); Mean Corpuscular HGB Conc 32 g/dL (31-36); Mean Corpuscular Hemoglobin 30 pg (27-31); Mean Corpuscular Volume 92 fL (80-97); Mean Platelet Volume 8.1 fL (7.4-10.4); Platelet Count 382 10^3/uL (150-450); Red Blood Count 3.86 10^6 /uL (3.70-4.87); Red Cell Distribution Width 16 % (10-15); White Blood Count 37.2 10^3/uL (3.5-10.8)
[2020-08-01 06:46] LABS: ABS Basophils 0.3 10^3/ul (0-0.2); ABS Lymphocytes 3.7 10^3/ul (1.0-4.8); ABS Monocytes 1.6 10^3/ul (0-0.8); ABS Neutrophils 30.7 10^3/ul (1.5-7.7); Eosinophil % 2.6 %; Polychromasia 1+
[2020-08-01] MEDS: NS 0.9% 1000 ml BAG 1,000 ML IV SCH (07:00)
[2020-08-01] MEDS ORDERED: Midazolam 10 mg/10 ml VIAL 1 mg/ml 10 ml VIAL (10 mg) ONE (14:29)
[2020-08-01] MEDS ORDERED: fentaNYL 100 mcg/2 ml 50 MCG/ML VIAL ONE (14:29)
[2020-08-01 15:44] VITALS: BP 102/62
== END 2020-08-01 18:20 | disposition home or self-care (01) ==
LOC: SSU 13:52 → ED 13:52 → SSU 22:44
PROVIDERS: ADMIT Internal Medicine; ATTEND Internal Medicine Hematology & Oncology